=== PATIENT | female | born 1970 | race Caucasian/White ===

== ENCOUNTER 2016-12-30 22:10 | Emergency (ER) | payer BC ==
[2016-12-30] MEDS ORDERED: LIDOCAINE VISCOUS 2% 15 ML UDC MM STA (22:28)
[2016-12-30] MEDS ORDERED: ONDANSETRON ODT 4 MG TABLET TL STA (22:28)
[2016-12-30 22:33] LABS: BASOPHILS # (AUTO) 0.1 10^3/uL (0.0-0.1); BASOPHILS % (AUTO) 1.2 %; EOSINOPHILS # (AUTO) 0.3 10^3/uL (0.0-0.7); EOSINOPHILS % (AUTO) 2.5 %; HCT - HEMATOCRIT 41.8 % (37.0-47.0); HGB - HEMOGLOBIN 14.3 g/dL (12.0-16.0); LYMPHOCYTES # (AUTO) 2.8 10^3/uL (1.5-3.5); LYMPHOCYTES % (AUTO) 25.9 %; MEAN CORPUSCULAR HEMOGLOBIN 31.2 pg (27.0-31.0); MEAN CORPUSCULAR HGB CONC 34.3 g/dL (32.0-36.0); MEAN CORPUSCULAR VOLUME 90.9 fL (81.0-99.0); MEAN PLATELET VOLUME 8.3 fL (7.9-10.8); MONOCYTES # (AUTO) 0.7 10^3/uL (0.0-1.0); MONOCYTES % (AUTO) 6.5 %; NEUTROPHILS # (AUTO) 6.9 10^3/uL (1.5-6.6); NEUTROPHILS % (AUTO) 63.9 %; NUCLEATED RED BLOOD CELLS AUTO 0.1 /100WBC; UNCORRECTED WHITE BLOOD COUNT 10.8 x10^3/uL; WHITE BLOOD COUNT 10.8 x10^3/uL (4.8-10.8)
[2016-12-30 22:40] LABS: BILIRUBIN,URINE NEGATIVE (NEGATIVE)
[2016-12-30 22:41] LABS: UA CHARGE (STRIP ONLY) YES; UR CULTURE IF IND NOT INDICATED
[2016-12-30 22:45] LABS: ALBUMIN/GLOBULIN RATIO 1.5 (1.0-2.2); BILIRUBIN,TOTAL 0.6 mg/dL (0.2-1.0); CALCIUM 8.8 mg/dL (8.5-10.3); CREATININE 0.5 mg/dL (0.4-1.0); POTASSIUM 3.7 mmol/L (3.5-5.0)
[2016-12-30] MEDS ORDERED: LIDOCAINE VISCOUS 2% 15 ML UDC MM ONE (22:50)
[2016-12-30] MEDS ORDERED: ONDANSETRON ODT 4 MG TABLET ONE (22:50)
--- NOTE | 2016-12-30 23:22 | ED Physician Documentation ---
PD HPI ABD PAIN - Stated complaint Stated Complaint: ABD/BACK PX - Chief complaint Chief Complaint: Abd Pain - History obtained from History obtained from: Patient, Family - History of Present Illness Timing - onset: How many hours ago (3) Timing - details: Abrupt onset, Still present Quality: Aching, Sharp, Stabbing, Pain Location: Epigastric Radiation: Upper back Worsened by: Eating, Position Associated symptoms: Nausea. No: Fever, Vomiting, Hematemesis, Diarrhea, Constipation Similar symptoms before: Work up / diagnostics, Treatment Recently seen: Not recently seen - Additional information Additional information: Patient is a 46 year old female who is presenting to the emergency department for abdominal pain. Patient and family state that it started this evening. Patient states that it is in the epigastric region and is stabbing in nature. Patient states that it wraps around her abdomen. Patient cannot tell if it related to food but does state that she ate poorly today. Patient states it feels similar to the ulcer she was diagnosed with two years ago. Review of Systems Constitutional: denies: Fever, Chills Eyes: denies: Decreased vision, Photophobia Ears: reports: Reviewed and negative Nose: reports: Reviewed and negative Throat: denies: Oral lesions / sores, Sore throat Cardiac: denies: Chest pain / pressure, Palpitations Respiratory: denies: Dyspnea, Cough, Wheezing GI: reports: Abdominal Pain, Nausea. denies: Vomiting, Constipation, Diarrhea : denies: Dysuria, Frequency, Hesitancy Skin: denies: Rash, Lesions Musculoskeletal: reports: Back pain. denies: Extremity pain Neurologic: denies: Generalized weakness Psychiatric: reports: Reviewed and negative Endocrine: reports: Reviewed and negative Immunocompromised: denies: Immunocompromised PD PAST MEDICAL HISTORY - Past Medical History Cardiovascular: None Respiratory: None Endocrine/Autoimmune: None GI: GERD, Ulcers : None HEENT: None Psych: None Musculoskeletal: None Derm: None - Past Surgical History Past Surgical History: Yes /[employer]AINER: section HEENT: Tonsil/Adenoidectomy - Present Medications Home Medications: Ambulatory Orders Medication Instructions Recorded Confirmed Famotidine [Pepcid] 20 mg PO BID #60 tablet 09/21/14 12/30/16 Hydrocodone/Acetaminophen 1 - 2 each PO Q6H PRN #10 tablet 12/31/16 [Hydrocodon-Acetaminophen 5-325] Ondansetron Odt [Zofran] 4 mg TL Q6H PRN #14 tablet 12/31/16 - Allergies Allergies/Adverse Reactions: Allergies Allergy/AdvReac Type Severity Reaction Status Date / Time No Known Drug Allergies Allergy Verified 12/30/16 22:15 - Social History Does the pt smoke?: No Smoking Status: Never smoker Does the pt drink ETOH?: No Does the pt have substance abuse?: No - Immunizations Immunizations are current?: Yes - POLST Patient has POLST: No PD ED PE NORMAL - Vitals Vital signs reviewed: Yes - General General: Alert and oriented X 3, Well developed/nourished - HEENT HEENT: Atraumatic, PERRL, Pharynx benign - Neck Neck: Supple, no meningeal sign, No JVD - Cardiac Cardiac: RRR, No murmur - Respiratory Respiratory: No respiratory distress - Abdomen Abdomen: Soft - Derm Derm: Normal color, Warm and dry, No rash - Extremities Extremities: No deformity, No edema, No calf tenderness / cord - Neuro Neuro: Alert and oriented X 3, No motor deficit, No sensory deficit, Normal speech - Psych Psych: Normal mood PD ED PE EXPANDED - General General: Alert, In Pain - HEENT HEENT: Dry mucous membranes - Abdomen Abdomen: Tender to palpation, RUQ, Epigastric. No: Rebound Results - Vitals Vitals: Vital Signs - 24 hr 12/30/16 12/31/16 22:12 00:38 Temperature 36.8 C 36.8 C Heart Rate 81 78 Respiratory 18 18 Rate Blood Pressure 145/88 H 131/86 H O2 Saturation 100 97 Oxygen O2 Source Room air - Labs Labs: Laboratory Tests 12/30/16 12/30/16 12/30/16 22:27 22:27 22:30 WBC 10.8 RBC 4.60 Hgb 14.3 Hct 41.8 MCV 90.9 MCH 31.2 H MCHC 34.3 RDW 14.0 Plt Count 372 MPV 8.3 Neut # 6.9 H Lymph # 2.8 [place] # 0.7 Eos # 0.3 Baso # 0.1 Absolute Nucleated RBC 0.01 Nucleated RBC % 0.1 Sodium 136 Potassium 3.7 Chloride 99 L Carbon Dioxide 28 Anion Gap 9.0 BUN 11 Creatinine 0.5 Estimated GFR (MDRD) 132 Glucose 172 H Calcium 8.8 Total Bilirubin 0.6 AST 55 H ALT 58 Alkaline Phosphatase 112 Total Protein 7.0 Albumin 4.2 Globulin 2.8 Albumin/Globulin Ratio 1.5 Lipase 23 Urine Color YELLOW Urine Clarity CLEAR Urine pH 6.0 Ur Specific [place] >=1.030 H Urine Protein NEGATIVE Urine Glucose (UA) NEGATIVE Urine Ketones NEGATIVE Urine Occult Blood NEGATIVE Urine Nitrite NEGATIVE Urine Bilirubin NEGATIVE Urine Urobilinogen 0.2 (NORMAL) Ur Leukocyte Esterase NEGATIVE Ur Microscopic Review NOT INDICATED Urine Culture Comments NOT INDICATED - Rads (name of study) abd ultrasound Radiology: Final report received (multiple gallstones with wall thickening) PD MEDICAL DECISION MAKING - ED course Complexity details: reviewed old records, reviewed results, re-evaluated patient , considered differential, d/w patient, d/w family ED course: Patient was seen and examined at bedside. IV access was gained and labs were drawn. Imaging was ordered. Patient was treated for pain. When patient returned from imaging the results were reviewed. Patient's findings were worrisome for acute cholecystitis. Patient and family were made aware of the findings and that the next step would be to see the surgeon. Patient stated that she did not want surgery at this point and would rather trial diet an exercise. Patient had no fever or white count and was able to tolerate PO. patient was given detailed discharge and return instructions. Patient was stable for discharge with outpatient follow up. Departure - Departure Disposition: 01 Home, Self Care Clinical Impression: Cholelithiasis, Biliary colic Condition: Good Instructions: ED Gallstone W Biliary Colic Follow-Up: Tuan Lundberg MD [Provider Admit Priv/Credential] - Prescriptions: Hydrocodone/Acetaminophen [Hydrocodon-Acetaminophen 5-325] 1 - 2 each PO Q6H PRN #10 tablet PRN Reason: pain Ondansetron Odt [Zofran] 4 mg TL Q6H PRN #14 tablet PRN Reason: Nausea / Vomiting Comments: Your symptoms today are are being caused by gallstones and gallbladder disease. It is important that you change your diet, no more fried, fatty or greasy foods. No fast foods or soda. Your findings were borderline today for acute cholecystitis so it is important that you return for fevers, chills, uncontrollable vomiting, new, worsening symptoms. Otherwise you can follow up with Dr. Lundberg in the office for further evaluation and care. Discharge Date/Time: 12/31/16 00:38
--- NOTE | 2016-12-30 23:56 | Ultrasound Preliminary Report ---
Exam: US ABDOMEN LIMITED IMPRESSION: 1. Multiple gallstones with wall thickening and overlying tenderness concerning for acute cholecystit is. 2. Large fatty liver. 3. No dilated ducts. [facility] SITE ID: [id number]
--- NOTE | 2016-12-30 23:58 | Ultrasound Report ---
EXAM: ABDOMEN ULTRASOUND LIMITED, RUQ EXAM DATE: 12/30/2016 11:37 PM. CLINICAL HISTORY: Upper abdominal pain. COMPARISON: None. TECHNIQUE: Real-time scanning was performed with static images obtained. FINDINGS: Liver: Large and echogenic. 20.5 cm. Main portal vein flow: Hepatopetal. Gallbladder: Multiple gallstones. Wall thickening to 5 mm. Overlying tenderness. Biliary System: CBD measures 5 mm. No intrahepatic or extrahepatic ductal dilatation. Other: The visualized pancreas and right kidney are unremarkable. No free fluid. IMPRESSION: 1. Multiple gallstones with wall thickening and overlying tenderness concerning for acute cholecystit is. 2. Large fatty liver. 3. No dilated ducts. [facility] Referring Provider Line: [phone] SITE ID: [id number]
[2016-12-31 00:41] VITALS: BP 131/86
== END 2016-12-31 00:38 | disposition home or self-care (01) ==
LOC: ED 22:10
DX: K80.20 Calculus of gallbladder without cholecystitis without obstruction (principal)
CPT/HCPCS: 36415; 76705; 80053; 81003; 83690; 85025; 99283; 99284; Q0162; 81001; 87086

== ENCOUNTER → 2017-11-21 | Outpatient (CLI) | payer SELFPAY ==
[2017-11-21 14:00] LABS: ALBUMIN 3.9 g/dL (3.2-5.5); ALBUMIN/GLOBULIN RATIO 1.6 (1.0-2.2); BILIRUBIN,TOTAL 0.7 mg/dL (0.2-1.0); CALCIUM 9.2 mg/dL (8.5-10.3); CREATININE 0.6 mg/dL (0.4-1.0); TOTAL PROTEIN 6.3 g/dL (6.7-8.2)
== END ==
LOC: LAB.WCP 08:00
PROVIDERS: ATTEND Family Medicine
DX: R74.8 Abnormal levels of other serum enzymes (principal)
CPT/HCPCS: 36415; 80053

== ENCOUNTER 2023-09-24 10:42 | Outpatient (CLI) | payer MEDICAID ==
[2023-09-24 17:58] LABS: BASOPHILS # (AUTO) 0.1 10^3/uL (0.0-0.1); BASOPHILS % (AUTO) 0.9 %; EOSINOPHILS # (AUTO) 0.2 10^3/uL (0.0-0.7); EOSINOPHILS % (AUTO) 2.1 %; HCT - HEMATOCRIT 41.7 % (37.0-47.0); LYMPHOCYTES # (AUTO) 3.6 10^3/uL (1.5-3.5); LYMPHOCYTES % (AUTO) 39.8 %; MEAN CORPUSCULAR HEMOGLOBIN 30.8 pg (27.0-31.0); MEAN CORPUSCULAR HGB CONC 33.6 g/dL (32.0-36.0); MEAN CORPUSCULAR VOLUME 91.9 fL (81.0-99.0); MEAN PLATELET VOLUME 10.6 fL (7.9-10.8); MONOCYTES # (AUTO) 0.7 10^3/uL (0.0-1.0); MONOCYTES % (AUTO) 7.5 %; NEUTROPHILS # (AUTO) 4.4 10^3/uL (1.5-6.6); NEUTROPHILS % (AUTO) 49.4 %; PLT - PLATELET COUNT 359 10^3/uL (130-450); RED BLOOD COUNT 4.54 10^6/uL (4.20-5.40); RED CELL DISTRIBUTION WIDTH 13.6 % (12.0-15.0); WHITE BLOOD COUNT 8.9 x10^3/uL (4.8-10.8)
[2023-09-24 18:21] LABS: ALBUMIN 4.2 g/dL (3.2-5.5); ALBUMIN/GLOBULIN RATIO 2.2 (1.0-2.2); ALKALINE PHOSPHATASE 89 IU/L (42-121); ALT ALANINE AMINOTRANSFERASE 41 IU/L (10-60); AST ASPARTATE AMINOTRANSFERASE 23 IU/L (10-42); BILIRUBIN,TOTAL 0.4 mg/dL (0.2-1.0); BUN - BLOOD UREA NITROGEN 13 mg/dL (6-20); CALCIUM 9.5 mg/dL (8.5-10.3); CARBON DIOXIDE - CO2 30 mmol/L (21-32); CHLORIDE 101 mmol/L (101-111); CHOLESTEROL 186 mg/dL; CREATININE 0.6 mg/dL (0.6-1.3); GFR - MDRD 104 (>89); GLUCOSE 186 mg/dL (74-104); HDL CHOLESTEROL 47 mg/dL; LDL CHOLESTEROL,CALCULATED 112 mg/dL; LDL/HDL RATIO 2.4 (<4.4); POTASSIUM 3.9 mmol/L (3.5-4.5); SODIUM 136 mmol/L (135-145); TOTAL PROTEIN 6.1 g/dL (6.4-8.9); TRIGLYCERIDES 137 mg/dL; VLDL CHOLESTEROL 27 mg/dL
[2023-09-24 18:33] LABS: THYROID STIMULATING HORMONE 3.93 uIU/mL (0.34-5.60)
[2023-09-24 20:57] LABS: ESTIMATED AVERAGE GLUCOSE 232 mg/dL (70-100); HEMOGLOBIN A1c% 9.7 % (4.27-6.07)
== END 2023-09-24 10:43 | disposition home or self-care (01) ==
LOC: LAB.N 10:42
PROVIDERS: ATTEND Family Medicine
DX: M54.16 Radiculopathy, lumbar region (principal); R06.09 Other forms of dyspnea; E66.01 Morbid (severe) obesity due to excess calories; R53.81 Other malaise; R74.8 Abnormal levels of other serum enzymes; R73.9 Hyperglycemia, unspecified
CPT/HCPCS: 36415; 80053; 80061; 83036; 83721; 84443; 85025